=== PATIENT | female | born 1955 | race Caucasian/White ===

== ENCOUNTER → 2025-03-02 13:06 | Outpatient (REF) | payer MEDICARE, OTHER, SELFPAY | LOC: RSP 13:06 | PROVIDERS: ATTENDING PHYSICIAN Physician Assistant | DX: J45.22 Mild intermittent asthma with status asthmaticus (principal) | CPT/HCPCS: 88738; 94010; 94727; 94729; 94761 ==

== ENCOUNTER → 2025-03-15 14:35 | Outpatient (REF) | payer MEDICARE, OTHER, SELFPAY | LOC: HWWDC 14:35 | PROVIDERS: ATTENDING PHYSICIAN Physician Assistant | DX: Z12.31 Encounter for screening mammogram for malignant neoplasm of breast (principal) | CPT/HCPCS: 77063; 77067 ==

== ENCOUNTER → 2025-03-21 08:47 | Outpatient (REF) | payer MEDICARE, OTHER, SELFPAY | LOC: HWRAD 08:47 | PROVIDERS: ATTENDING PHYSICIAN Physician Assistant | DX: Z78.0 Asymptomatic menopausal state (principal) | CPT/HCPCS: 77080 ==